=== PATIENT | male | born 1960 | race Caucasian/White ===

== ENCOUNTER 2017-03-07 03:02 | Emergency (ER) | payer MEDICARE, MEDICAID ==
--- NOTE | 2017-03-07 03:26 | EDM.PDOC ---
ED HPI GENERAL MEDICAL PROBLEM - General Chief Complaint: General Stated Complaint: GENERAL Time Seen by Provider: 03/07/17 03:15 Source of Information: Reports: Patient History Limitations: Reports: No Limitations - History of Present Illness INITIAL COMMENTS - FREE TEXT/NARRATIVE: 56 yo male presents with heart burn that began about bedtime that was mostly relieve with Gaviscon. He then developed urinary frequency without dysuria. Since then he had a "dry heave". Some chills also since [place]. Is a non-smoker x 20 yrs. Has not yet had an influenza vaccine. Onset: Today Onset Date: 03/07/17 Onset Time: 00:00 Duration: Hour(s): Location: Reports: Chest (GERD-like sx's) Quality: Reports: Burning Severity: Moderate Improves with: Reports: Medication (Gaviscon) Worsens with: Reports: Other (unknown) Context: Reports: Other (unknown) Associated Symptoms: Reports: Fever/Chills (no definite fever.), Nausea/ Vomiting. Denies: Cough Treatments [employer]: Reports: Other (see below) (Gaviscon) - Related Data Allergies Allergy/AdvReac Type Severity Reaction Status Date / Time bupropion [From Wellbutrin] Allergy Rash Verified 03/07/17 03:10 oxycodone Allergy Rash Verified 03/07/17 03:10 trazodone Allergy Other Verified 03/07/17 03:10 Home Meds: Home Meds Aspirin 81 mg PO DAILY 03/07/17 [History] Cyanocobalamin (Vitamin B-12) [Vitamin B12] 5,000 mcg PO DAILY 03/07/17 [History ] QUEtiapine [SEROquel] 50 mg PO DAILY 03/07/17 [History] atorvaSTATin [Lipitor] 10 mg PO BEDTIME 03/07/17 [History] traMADol HCl [Tramadol HCl] 50 mg PO QID 03/07/17 [History] ED ROS GENERAL - Review of Systems Review Of Systems: See Below Constitutional: Reports: Chills. Denies: Fever HEENT: Reports: No Symptoms Respiratory: Reports: No Symptoms Cardiovascular: Reports: Chest Pain (heart burn) Endocrine: Reports: Polyuria GI/Abdominal: Reports: Nausea. Denies: Abdominal Pain, Anorexia, Black Stool, Bloody Stool, Constipation, Diarrhea, Distension, Hematemesis, Hematochezia, Melena : Reports: Frequency Musculoskeletal: Reports: No Symptoms Skin: Reports: No Symptoms Neurological: Reports: No Symptoms Psychiatric: Reports: No Symptoms ED EXAM, GENERAL - Physical Exam Exam: See Below Exam Limited By: No Limitations General Appearance: Alert, WD/WN, No Apparent Distress Eye Exam: Bilateral Eye: Normal Inspection Ears: Normal External Exam, Normal Canal, Hearing Grossly Normal, Normal TMs Ear Exam: Bilateral Ear: Auricle Normal, Canal Normal, TM normal Nose: Normal Inspection, Normal Mucosa, No Blood Throat/Mouth: Normal Inspection, Normal Lips, Normal Teeth, Normal Oropharynx, Normal Voice, No Airway Compromise Head: Atraumatic, Normocephalic Neck: Normal Inspection, Supple, Non-Tender Respiratory/Chest: No Respiratory Distress, Lungs Clear, Normal Breath Sounds, No Accessory Muscle Use Cardiovascular: Regular Rate, Rhythm, No Edema GI/Abdominal: Normal Bowel Sounds, Soft, Non-Tender, No Distention Back Exam: Normal Inspection. No: CVA Tenderness (R), CVA Tenderness (L) Extremities: Normal Inspection, Normal Range of Motion, Non-Tender, No Pedal Edema Neurological: Alert, Oriented, CN II-XII Intact, Normal Cognition, Normal Gait, No Motor/Sensory Deficits Psychiatric: Normal Affect, Normal Mood Skin Exam: Warm, Dry, Intact, Normal Color, No Rash Lymphatic: No Adenopathy EKG INTERPRETATION EKG Date: 03/07/17 Time: 03:40 Rhythm: NSR Rate (Beats/Min): 65 [place]: Normal P-Wave: Present QRS: Normal ST-T: Normal QT: Normal Comparison: NA - No Prior EKG Course - Vital Signs Text/Narrative:: Post-void bladder scan 30 ml Accu Check-118 - Orders/Labs/Meds Orders: Active Orders 24 hr Category Date Time Status Accu Check [Blood Glucose Check, Bedside] [RC] ONETIME Care 03/07/17 03:22 Active Bladder Scan [RC] ONETIME Care 03/07/17 03:22 Active EKG Documentation Completion [RC] ASDIRECTED Care 03/07/17 03:27 Active EKG 12 Lead [EK] Routine Ther 03/07/17 03:26 Ordered Labs: Laboratory Tests 03/07/17 Range/Units 03:30 Urine Color Yellow (YELLOW) Urine Appearance Clear (CLEAR) Urine pH 8.0 H (5.0-6.5) Ur Specific [place] 1.020 (1.010-1.025) Urine Protein Negative (NEGATIVE) mg/dL Urine Glucose (UA) Normal (NEGATIVE) mg/dL Urine Ketones Negative (NEGATIVE) mg/dL Urine Occult Blood Negative (NEGATIVE) Urine Nitrite Negative (NEGATIVE) Urine Bilirubin Negative (NEGATIVE) Urine Urobilinogen Normal (NEGATIVE) mg/dL Ur Leukocyte Esterase Negative (NEGATIVE) Urine RBC 0-5 (0) Urine WBC 0-5 (0) Ur Squamous Epith Cells Occasional (NS,R,O) Urine Bacteria Few H (NS) Departure - Departure Time of Disposition: 04:12 Disposition: Home, Self-Care 01 Condition: Good Clinical Impression: Viral syndrome Allergic rhinitis Qualifiers: Chronicity: unspecified Allergic rhinitis trigger: unspecified Allergic rhinitis seasonality: unspecified seasonality Qualified Code(s): J30.9 - Allergic rhinitis, unspecified - Discharge Information Referrals: Evelyn Villa, TOUR BUS DRIVER/GUIDE [Primary Care Provider] - Forms: ED Department Discharge - My Orders Last 24 Hours: My Active Orders 03/07/17 03:22 Accu Check [Blood Glucose Check, Bedside] [RC] ONETIME Bladder Scan [RC] ONETIME 03/07/17 03:26 EKG 12 Lead [EK] Routine 03/07/17 03:27 EKG Documentation Completion [RC] ASDIRECTED - Assessment/Plan Last 24 Hours: My Active Orders 03/07/17 03:22 Accu Check [Blood Glucose Check, Bedside] [RC] ONETIME Bladder Scan [RC] ONETIME 03/07/17 03:26 EKG 12 Lead [EK] Routine 03/07/17 03:27 EKG Documentation Completion [RC] ASDIRECTED
[2017-03-07] MEDS ORDERED: Acetaminophen 500 MG Tab PO ONE (04:13)
== END 2017-03-07 04:27 | disposition home or self-care (01) ==
LOC: FB.ED 03:02
DX: J30.9 Allergic rhinitis, unspecified (principal); B34.9 Viral infection, unspecified; Z88.8 Allergy status to other drugs, medicaments and biological substances; Z79.82 Long term (current) use of aspirin; Z79.899 Other long term (current) drug therapy
CPT/HCPCS: 51798; 81001; 82962; 93005; 99284; A9270; 93010

== ENCOUNTER 2018-07-01 21:14 | Emergency (ER) | payer MEDICARE, MEDICAID ==
--- NOTE | 2018-07-01 22:02 | EDM.PDOC ---
ED HPI GENERAL MEDICAL PROBLEM - General Chief Complaint: Abdominal Pain Stated Complaint: L ABD PAIN Time Seen by Provider: 07/01/18 21:30 Source of Information: Reports: Patient, Family History Limitations: Reports: No Limitations - History of Present Illness INITIAL COMMENTS - FREE TEXT/NARRATIVE: Rowdy comes into [facility] ED with a 1.5 hr hx of LLQ pain. Pain is crampy and intermittently sharp, and nonradiating. There is some nausea, but no vomiting. There is no fever, chills, sweats, diarrhea or constipation. He has taken no meds. He did eat dinner without sequelae. - Related Data Allergies Allergy/AdvReac Type Severity Reaction Status Date / Time bupropion [From Wellbutrin] Allergy Rash Verified 07/01/18 23:10 oxycodone Allergy Rash Verified 07/01/18 23:10 trazodone Allergy Other Verified 07/01/18 23:10 Home Meds: Home Meds Aspirin 81 mg PO DAILY 03/07/17 [History] Cyanocobalamin (Vitamin B-12) [Vitamin B12] 5,000 mcg PO DAILY 03/07/17 [History ] QUEtiapine [SEROquel] 50 mg PO DAILY 03/07/17 [History] atorvaSTATin [Lipitor] 10 mg PO BEDTIME 03/07/17 [History] traMADol HCl [Tramadol HCl] 50 mg PO QID 03/07/17 [History] Ciprofloxacin [Ciprofloxacin HCl] 500 mg PO BID #14 tab 07/01/18 [Rx] Lisinopril 5 mg PO DAILY 07/01/18 [History] Montelukast [Singulair] 10 mg PO DAILY 07/01/18 [History] metroNIDAZOLE [Metronidazole] 500 mg PO Q8HR #20 tablet 07/01/18 [Rx] tiZANidine [Zanaflex] 4 mg PO DAILY 07/01/18 [History] Past Medical History - Past Health History Medical/Surgical History: Denies Medical/Surgical History Gastrointestinal History: Reports: Diverticulosis, Other (See Below) (colonic polyps) Social & Family History - Family History Family Medical History: Noncontributory - Caffeine Use Caffeine Use: Reports: None ED ROS GENERAL - Review of Systems Review Of Systems: See Below Constitutional: Reports: No Symptoms HEENT: Reports: No Symptoms Respiratory: Reports: No Symptoms Cardiovascular: Reports: No Symptoms Endocrine: Reports: No Symptoms GI/Abdominal: Reports: Abdominal Pain, Decreased Appetite, Nausea, Vomiting : Reports: No Symptoms Musculoskeletal: Reports: No Symptoms Skin: Reports: No Symptoms Neurological: Reports: No Symptoms Psychiatric: Reports: No Symptoms Hematologic/Lymphatic: Reports: No Symptoms Immunologic: Reports: No Symptoms ED EXAM, GI/ABD - Physical Exam Exam: See Below Exam Limited By: No Limitations General Appearance: Alert, WD/WN, No Apparent Distress, Anxious, Obese Eyes: Bilateral: Normal Appearance, EOMI Ears: Normal External Exam Nose: Normal Inspection Throat/Mouth: Normal Inspection Head: Normocephalic Neck: Normal Inspection, Supple, Non-Tender Respiratory/Chest: Lungs Clear, Normal Breath Sounds Cardiovascular: Regular Rate, Rhythm, No Murmur GI/Abdominal Exam: Normal Bowel Sounds, Soft, No Organomegaly, No Distention, No Mass, Tender (LLQ with guarding) (Male) Exam: No Hernia, Normal Inspection Back Exam: Normal Inspection Extremities: Normal Inspection Neurological: Alert, Oriented, CN II-XII Intact, Normal Cognition, No Motor/ Sensory Deficits Psychiatric: Normal Affect, Normal Mood Skin Exam: Warm, Dry, Intact, Normal Color Lymphatic: No Adenopathy Course - Vital Signs Text/Narrative:: Rowdy had some improvement in pain during ED visit while awaiting results of Abd-Pelvic CT w IV contrast: mild wall thickening w multiple diverticulosis in the sigmoid colon, acute inflammation no distinctly seen. I empirically administered Cipro 500 mg tab and Metronidazole 500 mg tab before discharge. - Orders/Labs/Meds Orders: Active Orders 24 hr Category Date Time Status Abdomen Pelvis w Cont [CT] Stat Exams 07/01/18 21:55 Taken Diatrizoate Lisette/Diatrizoate Na [Gastrografin 37%] Med 07/01/18 22:30 Active 30 ml PO . DIRECTED Medication Orders Diatrizoate Meglum/Diatrizoate Sod (Gastrografin 37%) 30 ml PO . DIRECTED ANGELICA Last Admin: 07/01/18 22:46 Dose: 30 ml Labs: Laboratory Tests 07/01/18 07/01/18 07/01/18 Range/Units 22:10 22:18 22:18 WBC 8.6 (4.5-12.0) X10-3/uL RBC 5.11 (4.30-5.75) x10(6)uL Hgb 14.8 (13.5-17.8) g/dL Hct 44.0 (30.0-51.3) % MCV 86.1 (80-96) fL MCH 29.0 (27.7-33.6) pg MCHC 33.7 (32.2-35.4) g/dL RDW 13.8 (11.5-15.5) % Plt Count 362 (125-369) X10(3)uL MPV 8.1 (7.4-10.4) fL Neut % (Auto) 73.3 (46-82) % Lymph % (Auto) 16.6 (13-37) % [place] % (Auto) 5.6 (4-12) % Eos % (Auto) 4 (1.0-5.0) % Baso % (Auto) 1 (0-2) % Neut # (Auto) 6.3 (1.6-8.3) # Lymph # (Auto) 1.4 (0.6-5.0) # [place]ps # (Auto) 0.5 (0.0-1.3) # Eos # (Auto) 0.3 (0.0-0.8) # Baso # (Auto) 0.1 (0.0-0.2) # ESR 4 (0-15) mm/hr Sodium 144 (135-145) mmol/L Potassium 3.8 (3.5-5.3) mmol/L Chloride 105 (100-110) mmol/L Carbon Dioxide 31 (21-32) mmol/L BUN 15 (7-18) mg/dL Creatinine 1.2 (0.70-1.30) mg/dL Est Cr Clr Drug Dosing TNP Estimated GFR (MDRD) > 60 (>60) BUN/Creatinine Ratio 12.5 (9-20) Glucose 103 (80-116) mg/dL Calcium 9.2 (8.6-10.2) mg/dL C-Reactive Protein (0.5-0.9) mg/dL Urine Color Yellow (YELLOW) Urine Appearance Clear (CLEAR) Urine pH 6.0 (5.0-6.5) Ur Specific [place] 1.010 (1.010-1.025) Urine Protein Negative (NEGATIVE) mg/dL Urine Glucose (UA) Normal (NORMAL) mg/dL Urine Ketones Negative (NEGATIVE) mg/dL Urine Occult Blood Negative (NEGATIVE) Urine Nitrite Negative (NEGATIVE) Urine Bilirubin Negative (NEGATIVE) Urine Urobilinogen Normal (NEGATIVE) mg/dL Ur Leukocyte Esterase Negative (NEGATIVE) Urine RBC 0-5 (0-5) Urine WBC 0-5 (0-5) Ur Squamous Epith Cells Occasional (NS,R,O) Urine Bacteria Rare H (NS) 07/01/18 Range/Units 22:18 WBC (4.5-12.0) X10-3/uL RBC (4.30-5.75) x10(6)uL Hgb (13.5-17.8) g/dL Hct (30.0-51.3) % MCV (80-96) fL MCH (27.7-33.6) pg MCHC (32.2-35.4) g/dL RDW (11.5-15.5) % Plt Count (125-369) X10(3)uL MPV (7.4-10.4) fL Neut % (Auto) (46-82) % Lymph % (Auto) (13-37) % [place] % (Auto) (4-12) % Eos % (Auto) (1.0-5.0) % Baso % (Auto) (0-2) % Neut # (Auto) (1.6-8.3) # Lymph # (Auto) (0.6-5.0) # [place] # (Auto) (0.0-1.3) # Eos # (Auto) (0.0-0.8) # Baso # (Auto) (0.0-0.2) # ESR (0-15) mm/hr Sodium (135-145) mmol/L Potassium (3.5-5.3) mmol/L Chloride (100-110) mmol/L Carbon Dioxide (21-32) mmol/L BUN (7-18) mg/dL Creatinine (0.70-1.30) mg/dL Est Cr Clr Drug Dosing Estimated GFR (MDRD) (>60) BUN/Creatinine Ratio (9-20) Glucose (80-116) mg/dL Calcium (8.6-10.2) mg/dL C-Reactive Protein < 0.2 L (0.5-0.9) mg/dL Urine Color (YELLOW) Urine Appearance (CLEAR) Urine pH (5.0-6.5) Ur Specific [place] (1.010-1.025) Urine Protein (NEGATIVE) mg/dL Urine Glucose (UA) (NORMAL) mg/dL Urine Ketones (NEGATIVE) mg/dL Urine Occult Blood (NEGATIVE) Urine Nitrite (NEGATIVE) Urine Bilirubin (NEGATIVE) Urine Urobilinogen (NEGATIVE) mg/dL Ur Leukocyte Esterase (NEGATIVE) Urine RBC (0-5) Urine WBC (0-5) Ur Squamous Epith Cells (NS,R,O) Urine Bacteria (NS) Meds: Medications Generic Name Dose Route Start Last Admin Trade Name Freq PRN Reason Stop Dose Admin Diatrizoate Meglum/Diatrizoate Sod 30 ml 07/01/18 22:30 07/01/18 22:46 Gastrografin 37% PO 30 ml . DIRECTED ANGELICA Administration Discontinued Medications Generic Name Dose Route Start Last Admin Trade Name Freq PRN Reason Stop Dose Admin Ciprofloxacin 500 mg 07/01/18 23:12 07/01/18 23:20 Ciprofloxacin Hcl PO 07/01/18 23:13 500 mg ONETIME ONE Administration Iopamidol 100 ml 07/01/18 22:26 07/01/18 22:46 Isovue-370 (76%) IV 07/01/18 22:27 100 ml . DIRECTED ONE Administration Metronidazole 500 mg 07/01/18 23:12 07/01/18 23:20 Flagyl PO 07/01/18 23:13 500 mg ONETIME ONE Administration Departure - Departure Time of Disposition: 23:23 Disposition: Home, Self-Care 01 Condition: Fair Clinical Impression: Sigmoid diverticulitis - Discharge Information *PRESCRIPTION DRUG MONITORING PROGRAM REVIEWED*: Not Applicable *COPY OF PRESCRIPTION DRUG MONITORING REPORT IN PATIENT REGINALDO: Not Applicable Prescriptions: metroNIDAZOLE [Metronidazole] 500 mg PO Q8HR #20 tablet Ciprofloxacin [Ciprofloxacin HCl] 500 mg PO BID #14 tab Referrals: Evelyn Villa DOCUMENT REVIEW ATTORNEY [Primary Care Provider] - Forms: ED Department Discharge - Problem List & Annotations (1) Sigmoid diverticulitis SNOMED Code(s): 104023859 Code(s): K57.32 - DVTRCLI OF LG INT W/O PERFORATION OR ABSCESS W/O BLEEDING Status: Acute Current Visit: Yes Annotation/Comment:: I empiracally dispensed Cipro 500 mg bid for a week and Metronidazole 500 mg tid for a week, advised avoidance of seeds and nuts, and follow up with PCP. - Problem List Review Problem List Initiated/Reviewed/Updated: Yes - My Orders Last 24 Hours: My Active Orders 07/01/18 21:55 Abdomen Pelvis w Cont [CT] Stat 07/01/18 22:30 Diatrizoate Lisette/Diatrizoate Na [Gastrografin 37%] 30 ml PO . DIRECTED - Assessment/Plan Last 24 Hours: My Active Orders 07/01/18 21:55 Abdomen Pelvis w Cont [CT] Stat 07/01/18 22:30 Diatrizoate Lisette/Diatrizoate Na [Gastrografin 37%] 30 ml PO . DIRECTED Plan: Follow up with PCP later this month.
[2018-07-01] MEDS ORDERED: Iopamidol 755 Mg/ML 100 ML Bottle IV ONE (22:26)
[2018-07-01] MEDS ORDERED: Diatrizoate Meglumine/Diatrizoate Sodium 37% 30 ML Bottle PO SCH (22:30)
[2018-07-01] MEDS ORDERED: Ciprofloxacin 500 MG Tab PO ONE (23:12)
[2018-07-01] MEDS ORDERED: metroNIDAZOLE 500 MG Tab PO ONE (23:12)
== END 2018-07-01 23:30 | disposition home or self-care (01) ==
LOC: FB.ED 21:14
DX: K57.32 Diverticulitis of large intestine without perforation or abscess without bleeding (principal); Z88.5 Allergy status to narcotic agent; Z79.899 Other long term (current) drug therapy; Z79.82 Long term (current) use of aspirin
CPT/HCPCS: 36415; 74177; 80048; 81001; 85025; 85651; 86140; 99284; A9270; Q9963; Q9967

== ENCOUNTER 2018-08-18 04:16 | Emergency (ER) | payer MEDICAID, MEDICARE ==
--- NOTE | 2018-08-18 04:45 | EDM.PDOC ---
ED HPI GENERAL MEDICAL PROBLEM - General Chief Complaint: ENT Problem Stated Complaint: TROUBLE SWALLOWING SOB Time Seen by Provider: 08/18/18 04:16 Source of Information: Reports: Patient History Limitations: Reports: No Limitations - History of Present Illness INITIAL COMMENTS - FREE TEXT/NARRATIVE: 58 y.o.w.m came to the ed after he woke up with sudden pain at his throat. He had the feeling some is tuck in his throat, hurts to swallow. Pt ate a hamburger last night. He had no symptoms when he went to bed. No H/O of epiglottis, no Trauma. Pt is able to drink water well. No F/C/N/V/D or any other acute medical issues. BP 186/100 RR 18 Pulse ox 98% on RA, Temp 36.4 Pulse 93 Onset Date: 08/18/18 Onset Time: 03:20 Duration: Minutes:, Constant Location: Reports: Neck Quality: Reports: Ache, Burning, Dull Severity: Mild Improves with: Reports: Rest Worsens with: Reports: Movement Context: Reports: Other Associated Symptoms: Reports: No Other Symptoms Throat Pain Score (Numeric/FACES): 8 - Related Data Allergies Allergy/AdvReac Type Severity Reaction Status Date / Time bupropion [From Wellbutrin] Allergy Rash Verified 08/18/18 04:22 oxycodone Allergy Rash Verified 08/18/18 04:22 trazodone Allergy Other Verified 08/18/18 04:22 Home Meds: Home Meds Aspirin 81 mg PO DAILY 03/07/17 [History] Cyanocobalamin (Vitamin B-12) [Vitamin B12] 5,000 mcg PO DAILY 03/07/17 [History ] QUEtiapine [SEROquel] 50 mg PO BEDTIME 03/07/17 [History] traMADol HCl [Tramadol HCl] 50 mg PO QID 03/07/17 [History] Lisinopril 10 mg PO DAILY 07/01/18 [History] Montelukast [Singulair] 10 mg PO BEDTIME 07/01/18 [History] tiZANidine [Zanaflex] 4 mg PO BID 07/01/18 [History] Amoxicillin/Potassium Clav [Augmentin 875-125 Tablet] 1 each PO BID #20 tablet 08/18/18 [Rx] predniSONE 20 mg PO WITHBREAKFAST #3 tab 08/18/18 [Rx] Past Medical History - Past Health History Medical/Surgical History: Denies Medical/Surgical History Gastrointestinal History: Reports: Diverticulosis, Other (See Below) (colonic polyps) Social & Family History - Family History Family Medical History: Noncontributory - Caffeine Use Caffeine Use: Reports: None ED ROS ENT - Review of Systems Review Of Systems: See Below Constitutional: Reports: No Symptoms HEENT: Reports: Throat Pain, Throat Swelling Respiratory: Reports: No Symptoms Cardiovascular: Reports: No Symptoms Endocrine: Reports: No Symptoms GI/Abdominal: Reports: No Symptoms : Reports: No Symptoms Musculoskeletal: Reports: No Symptoms Skin: Reports: No Symptoms Neurological: Reports: No Symptoms Psychiatric: Reports: No Symptoms Hematologic/Lymphatic: Reports: No Symptoms Immunologic: Reports: No Symptoms ED EXAM, ENT - Physical Exam Exam: See Below Exam Limited By: No Limitations General Appearance: Alert, WD/WN, Mild Distress Eye Exam: Bilateral Eye: Normal Inspection Ears: Normal External Exam, Normal Canal Nose: Normal Inspection, Normal Mucousa, No Blood Mouth/Throat: Uvular Edema Head: Atraumatic, Normocephalic Neck: Normal Inspection, Supple, Non-Tender, Full Range of Motion Respiratory/Chest: No Respiratory Distress, Lungs Clear, Normal Breath Sounds, No Accessory Muscle Use, Chest Non-Tender Cardiovascular: Normal Peripheral Pulses, Regular Rate, Rhythm, No Edema GI/Abdominal: Normal Bowel Sounds, Soft, Non-Tender, No Organomegaly, Pelvis Stable (Male) Exam: Deferred Rectal (Males) Exam: Deferred Back: Normal Inspection, Full Range of Motion Extremities: Normal Inspection, Normal Range of Motion, Non-Tender Neurological: Alert, Oriented, CN II-XII Intact, Normal Cognition, Normal Gait Psychiatric: Normal Affect, Normal Mood Skin: Warm, Dry, Intact, Normal Color, No Rash Lymphatic: No Adenopathy Course - Vital Signs Text/Narrative:: 58 y.o.w.m came to the ed after he woke up with sudden pain at his throat. He had the feeling some is tuck in his throat, hurts to swallow. Pt ate a hamburger last night. He had no symptoms when he went to bed. No H/O of epiglottis, no Trauma. Pt is able to drink water well. No F/C/N/V/D or any other acute medical issues. BP 186/100 RR 18 Pulse ox 98% on RA, Temp 36.4 Pulse 93 PE: WNWD W M with dysphagia Imaging: CT soft tissue neck: Prominent Uvula, ENT evaluation recommended Labs: RST: Neg Cx pending Impression: Uvulitis Tx: Augmentin, Prednisone Reexam: Pt's symptoms improved while the was her in the ED Plan: D/C with instructions Last Recorded V/S: Last Vital Signs Temp 36.4 C 08/18/18 04:16 Pulse 71 08/18/18 06:39 Resp 18 08/18/18 06:39 BP 156/101 H 08/18/18 06:39 Pulse Ox 98 08/18/18 06:39 - Orders/Labs/Meds Orders: Active Orders 24 hr Category Date Time Status Neck Soft Tissue [CR] Stat Exams 08/18/18 04:33 Stop Req Soft Tissue Neck w Cont [CT] Stat Exams 08/18/18 05:13 Taken CULTURE STREP A CONFIRMATION [] Stat Lab 08/18/18 04:40 Results STREP SCRN A RAPID W CULT CONF [] Stat Lab 08/18/18 04:40 Results Meds: Medications Discontinued Medications Generic Name Dose Route Start Last Admin Trade Name Freq PRN Reason Stop Dose Admin Amoxicillin/Clavulanate Potassium 1 tab 08/18/18 06:16 08/18/18 06:25 Augmentin 875 Mg/125 Mg PO 08/18/18 06:17 1 tab ONETIME ONE Administration Iopamidol 75 ml 08/18/18 04:59 08/18/18 05:09 Isovue-370 (76%) IV 08/18/18 05:00 75 ml ONETIME ONE Administration Prednisone 20 mg 08/18/18 06:13 08/18/18 06:25 Prednisone PO 08/18/18 06:14 20 mg ONETIME ONE Administration Departure - Departure Time of Disposition: 06:14 Disposition: Home, Self-Care 01 Condition: Good Clinical Impression: Uvulitis - Discharge Information Prescriptions: Amoxicillin/Potassium Clav [Augmentin 875-125 Tablet] 1 each PO BID #20 tablet predniSONE 20 mg PO WITHBREAKFAST #3 tab Instructions: Amoxicillin; Clavulanic Acid tablets, Prednisone tablets, Uvulitis Referrals: Evelyn Villa, FIRE MARSHAL [Primary Care Provider] - Forms: ED Department Discharge Additional Instructions: Please take the medications as recommended, please follow up with ENT (ear, nose & throat) doctor for direct visualization of your uvula, please come back if your symptoms get worse acutely - My Orders Last 24 Hours: My Active Orders 08/18/18 04:33 Neck Soft Tissue [CR] Stat 08/18/18 04:40 CULTURE STREP A CONFIRMATION [RM] Stat STREP SCRN A RAPID W CULT CONF [RM] Stat 08/18/18 05:13 Soft Tissue Neck w Cont [CT] Stat - Assessment/Plan Last 24 Hours: My Active Orders 08/18/18 04:33 Neck Soft Tissue [CR] Stat 08/18/18 04:40 CULTURE STREP A CONFIRMATION [RM] Stat STREP SCRN A RAPID W CULT CONF [RM] Stat 08/18/18 05:13 Soft Tissue Neck w Cont [CT] Stat
[2018-08-18] MEDS ORDERED: Iopamidol 755 Mg/ML 75 ML Bottle IV ONE (04:59)
[2018-08-18] MEDS ORDERED: predniSONE 20 MG Tab PO ONE (06:13)
[2018-08-18] MEDS ORDERED: Amoxicillin/Clavulanate K 875-125 MG Tab PO ONE (06:16)
== END 2018-08-18 06:28 | disposition home or self-care (01) ==
LOC: FB.ED 04:16
DX: K12.2 Cellulitis and abscess of mouth (principal); Z79.82 Long term (current) use of aspirin; Z79.899 Other long term (current) drug therapy; Z88.8 Allergy status to other drugs, medicaments and biological substances; Z88.6 Allergy status to analgesic agent
CPT/HCPCS: 70360; 70491; 87081; 87880-QW; 99283; 99284-25; A9270-GY; Q9967

== ENCOUNTER 2018-10-12 05:49 | Emergency (ER) | payer MEDICAID, MEDICARE ==
[2018-10-12] MEDS ORDERED: Famotidine/Normal Saline 20 MG in Premix Bag 1 BAG IV ONE (06:35)
[2018-10-12] MEDS ORDERED: Dexamethasone 4 MG/ML SDV IVPUSH ONE (06:35)
[2018-10-12] MEDS ORDERED: Sodium Chloride 0.9% 10 ML Syringe FLUSH PRN (06:35)
[2018-10-12] MEDS ORDERED: diphenhydrAMINE 50 MG/ML SDV IVPUSH ONE (06:37)
[2018-10-12] MEDS ORDERED: Sodium Chloride 0.9% 1,000 ML IV SCH (06:45)
--- NOTE | 2018-10-12 06:50 | EDM.PDOC ---
ED HPI GENERAL MEDICAL PROBLEM - General Chief Complaint: Respiratory Problem Stated Complaint: THROAT PAIN Time Seen by Provider: 10/12/18 06:10 Source of Information: Reports: Patient History Limitations: Reports: No Limitations - History of Present Illness INITIAL COMMENTS - FREE TEXT/NARRATIVE: 58-year-old male who awoke at roughly 5:30 AM today with a feeling of something stuck in his throat. He had a similar feeling to this about 2 months ago and came to the emergency department and was found to have uvula swelling. He was treated with Benadryl and prednisone and was also placed on Augmentin for treatment of a uvulitis. He was later followed up by his primary provider and his lisinopril was stopped. At that time the patient was started on losartan for his blood pressure. The swelling in his throat was in his uvula and it resolved over a shorter time following the initial incident and he had had no further swelling since that time. He had problems with swallowing and congestion in his nose and recently was placed on Augmentin again for sinusitis (he has been on been on this Augmentin 15 days). Although it does feel like something is stuck in the throat, he is able to swallow liquids okay. He is really not having any trouble breathing at present. He mainly has a discomfort in his throat with swallowing that he would rated as a 5/10. No fevers. No chills. No chest pain. No arm pain. No nausea or vomiting. The patient did take Benadryl 100 mg by mouth and prednisone 40 mg by mouth (he was given the prednisone by his doctor to take if this happened again) this morning at around the time he awoke and now he feels somewhat improved from his initial awakening. There are no other associated signs or symptoms. There are no other modifying factors. Onset: Today (5:30 AM) Duration: Constant (But some mild improvement he feels after the 100 mg of Benadryl and 40 mg of prednisone that he took orally this morning.) Location: Reports: Neck (Throat) Quality: Reports: Other (Fullness, something swollen) Severity: Moderate Improves with: Reports: Medication (He feels as above) Worsens with: Reports: None Context: Reports: Other (Awoke with his symptoms) Associated Symptoms: Reports: No Other Symptoms Treatments [employer]: Reports: Other (see below) Other Treatments [employer]: 2 Prednisone, 4 Benadryl - Related Data Allergies Allergy/AdvReac Type Severity Reaction Status Date / Time bupropion [From Wellbutrin] Allergy Rash Verified 10/12/18 05:58 lisinopril Allergy Swelling Verified 10/12/18 08:22 losartan Allergy Swelling Verified 10/12/18 08:22 oxycodone Allergy Rash Verified 10/12/18 05:58 trazodone Allergy Other Verified 10/12/18 05:58 Home Meds: Home Meds Aspirin 81 mg PO DAILY 03/07/17 [History] Cyanocobalamin (Vitamin B-12) [Vitamin B12] 5,000 mcg PO DAILY 03/07/17 [History ] QUEtiapine [SEROquel] 50 mg PO BEDTIME 03/07/17 [History] traMADol HCl [Tramadol HCl] 50 mg PO QID 03/07/17 [History] Montelukast [Singulair] 10 mg PO BEDTIME 07/01/18 [History] tiZANidine [Zanaflex] 4 mg PO BID 07/01/18 [History] Amoxicillin/Potassium Clav [Augmentin 875-125 Tablet] 1 each PO BID #20 tablet 08/18/18 [Rx] predniSONE 20 mg PO WITHBREAKFAST #3 tab 08/18/18 [Rx] Cetirizine HCl [Zyrtec] 10 mg PO DAILY 10/12/18 [History] Losartan Potassium 25 mg PO DAILY 10/12/18 [History] Meloxicam 15 mg PO DAILY 10/12/18 [History] Ranitidine HCl 150 mg PO BID #8 tablet 10/12/18 [Rx] amLODIPine Besylate [Norvasc] 10 mg PO DAILY #30 tablet 10/12/18 [Rx] predniSONE [Prednisone] 50 mg PO DAILY #3 tablet 10/12/18 [Rx] Past Medical History 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 Psychiatric History: Reports: Bipolar, Psych Hospitalization(s), Suicide Attempt Endocrine/Metabolic History: Reports: Hyperthyroidism, Obesity/BMI 30+ - Infectious Disease History Infectious Disease History: Reports: Chicken Pox, Mumps - Past Surgical History GI Surgical History: Reports: Colonoscopy, Hernia, Abdominal, Hernia, Inguinal Neurological Surgical History: Reports: Spinal Fusion, Other (See Below) Other Neurological Surgeries/Procedures: neck fusion x 2 Musculoskeletal Surgical History: Reports: Shoulder Surgery Other Musculoskeletal Surgeries/Procedures:: R rotator cuff surgery 2 Social & Family History - Tobacco Use Smoking Status *Q: Former Smoker Used Tobacco, but Quit: Yes Month/Year Tobacco Last Used: 25 years ago - Caffeine Use Caffeine Use: Reports: Coffee, Soda - Alcohol Use Alcohol Use History: Yes Alcohol Use Frequency: Socially - Recreational Drug Use Recreational Drug Use: No - Living Situation & Occupation Occupation: Disabled ED ROS GENERAL - Review of Systems Review Of Systems: See Below Constitutional: Reports: No Symptoms HEENT: Reports: Other (Uvula edema) Respiratory: Reports: No Symptoms Cardiovascular: Reports: No Symptoms Endocrine: Reports: No Symptoms GI/Abdominal: Reports: No Symptoms : Reports: No Symptoms Musculoskeletal: Reports: No Symptoms Skin: Reports: No Symptoms Neurological: Reports: No Symptoms Hematologic/Lymphatic: Reports: No Symptoms Immunologic: Reports: No Symptoms ED EXAM, GENERAL - Physical Exam Exam: See Below Exam Limited By: No Limitations General Appearance: Alert, WD/WN, Mild Distress Eye Exam: Bilateral Eye: EOMI, Normal Inspection, PERRL Ears: Normal External Exam Ear Exam: Bilateral Ear: Auricle Normal Nose: Normal Inspection, Normal Mucosa, No Blood Throat/Mouth: Normal Voice, No Airway Compromise, Inflammation (Uvula edema) Head: Atraumatic, Normocephalic Neck: Normal Inspection, Supple, Non-Tender, Full Range of Motion, Other (No stridor) Respiratory/Chest: No Respiratory Distress, Lungs Clear, Normal Breath Sounds, No Accessory Muscle Use, Chest Non-Tender Cardiovascular: Normal Peripheral Pulses, Regular Rate, Rhythm, No JVD Peripheral Pulses: 2+: Radial (L), Radial (R) GI/Abdominal: Normal Bowel Sounds, Soft, Non-Tender, No Mass Back Exam: Normal Inspection Extremities: Normal Inspection, Normal Range of Motion, Non-Tender, No Pedal Edema, Normal Capillary Refill Neurological: Alert, Oriented, CN II-XII Intact, Normal Cognition, No Motor/ Sensory Deficits Skin Exam: Warm, Dry, Intact, Normal Color, No Rash EKG INTERPRETATION EKG Date: 10/12/18 Time: 05:52 Rhythm: NSR Rate (Beats/Min): 79 Thompson: Normal P-Wave: Present QRS: Normal ST-T: Other (Some anterolateral ST-T changes which have been present on previous EKG on 03/07/2017.) QT: Prolonged Comparison: No Change (From EKG performed on 03/07/2017.) Course - Vital Signs Last Recorded V/S: Last Vital Signs Temp 36.5 C 10/12/18 05:50 Pulse 78 10/12/18 05:50 Resp 18 10/12/18 05:50 BP 171/94 H 10/12/18 05:50 Pulse Ox 98 10/12/18 06:00 - Orders/Labs/Meds Orders: Active Orders 24 hr Category Date Time Status Sodium Chloride 0.9% [Normal Saline] 1,000 ml Med 10/12/18 06:45 Active IV ASDIRECTED Sodium Chloride 0.9% [Saline Flush] Med 10/12/18 06:35 Active 10 ml FLUSH ASDIRECTED PRN Peripheral IV Insertion Adult [OM.PC] Routine Oth 10/12/18 06:35 Ordered Medication Orders Sodium Chloride (Normal Saline) 1,000 mls @ 100 mls/hr IV ASDIRECTED ANGELICA Last Admin: 10/12/18 06:50 Dose: 100 mls/hr Sodium Chloride (Saline Flush) 10 ml FLUSH ASDIRECTED PRN PRN Reason: Keep Vein Open Last Admin: 10/12/18 06:40 Dose: 10 ml Meds: Medications Generic Name Dose Route Start Last Admin Trade Name Freq PRN Reason Stop Dose Admin Sodium Chloride 1,000 mls @ 100 mls/hr 10/12/18 06:45 10/12/18 06:50 Normal Saline IV 100 mls/hr ASDIRECTED ANGELICA Administration Sodium Chloride 10 ml 10/12/18 06:35 10/12/18 06:40 Saline Flush FLUSH 10 ml ASDIRECTED PRN Administration Keep Vein Open Discontinued Medications Generic Name Dose Route Start Last Admin Trade Name Freq PRN Reason Stop Dose Admin Amlodipine Besylate 10 mg 10/12/18 08:18 Norvasc PO 10/12/18 08:19 ONETIME ONE Dexamethasone 10 mg 10/12/18 06:35 10/12/18 06:53 Dexamethasone IVPUSH 10/12/18 06:36 10 mg ONETIME ONE Administration Diphenhydramine HCl 25 mg 10/12/18 06:37 10/12/18 06:52 Benadryl IVPUSH 10/12/18 06:38 25 mg ONETIME ONE Administration Famotidine 20 mg/ Premix 50 mls @ 200 mls/hr 10/12/18 06:35 10/12/18 06:51 IV 10/12/18 06:36 200 mls/hr ONETIME ONE Administration - Re-Assessments/Exams Free Text/Narrative Re-Assessment/Exam: 10/12/18 08:25: No respiratory distress. His blood pressure is still elevated but he has not taken his losartan today. He feels that the swelling is somewhat improved. He is swallowing better. This certainly could be ARB related angioedema and I will definitely have him stop his losartan today. I did call and discuss his case with Evelyn Escobar NP (the patient's primary provider at [facility]) and she has recommended starting the patient on Norvasc 10 mg daily (I will give him his first dose today) and she will follow him up in clinic on 10/15/2018, at 1:30 PM. The patient appears stable for discharge. I we will continue the patient on prednisone for the next 3 days and Benadryl and ranitidine for the next 2 days. Departure - Departure Time of Disposition: 08:45 Disposition: Home, Self-Care 01 Condition: Good (Stable) Clinical Impression: Uvulitis Angioedema Qualifiers: Encounter type: initial encounter Qualified Code(s): T78.3XXA - Angioneurotic edema, initial encounter Adverse reaction to losartan Qualifiers: Encounter type: initial encounter Qualified Code(s): T46.5X5A - Adverse effect of other antihypertensive drugs, initial encounter Hypertension Qualifiers: Hypertension type: essential hypertension Qualified Code(s): I10 - Essential ( primary) hypertension - Discharge Information Prescriptions: amLODIPine Besylate [Norvasc] 10 mg PO DAILY #30 tablet predniSONE [Prednisone] 50 mg PO DAILY #3 tablet Ranitidine HCl 150 mg PO BID #8 tablet Instructions: Angioedema, [id number] Referrals: Evelyn Villa NP [Primary Care Provider] - Forms: ED Department Discharge Additional Instructions: The swelling in your uvula may be related to the blood pressure medicine you're taking (losartan). Therefore you should stop the losartan and do not take it again. I am placing you on a new blood pressure medication (Norvasc 10 mg). I discussed this with your primary provider, Evelyn Escobar. You should rest. You should drink plenty of fluids. You should also take Benadryl 50 mg 4 times a day for the next 2 days and then as needed for the swelling/allergic reaction. Other medication as prescribed (prednisone 50 mg, ranitidine 150 mg). You are scheduled to follow-up with Evelyn Escobar at [facility] at 1:30 PM on 2018 (this Thursday). Back to the emergency department for worse swelling, inability to swallow, trouble breathing or any other concerning sign or symptom. - My Orders Last 24 Hours: My Active Orders 10/12/18 06:35 Sodium Chloride 0.9% [Saline Flush] 10 ml FLUSH ASDIRECTED PRN Peripheral IV Insertion Adult [OM.PC] Routine 10/12/18 06:45 Sodium Chloride 0.9% [Normal Saline] 1,000 ml IV ASDIRECTED - Assessment/Plan Last 24 Hours: My Active Orders 10/12/18 06:35 Sodium Chloride 0.9% [Saline Flush] 10 ml FLUSH ASDIRECTED PRN Peripheral IV Insertion Adult [OM.PC] Routine 10/12/18 06:45 Sodium Chloride 0.9% [Normal Saline] 1,000 ml IV ASDIRECTED
[2018-10-12] MEDS ORDERED: amLODIPine 10 MG Tab PO ONE (08:18)
== END 2018-10-12 09:00 | disposition home or self-care (01) ==
LOC: FB.ED 05:49
DX: T78.3XXA Angioneurotic edema, initial encounter (principal); K12.2 Cellulitis and abscess of mouth; T46.5X5A Adverse effect of other antihypertensive drugs, initial encounter; I10 Essential (primary) hypertension; Z87.891 Personal history of nicotine dependence; E78.00 Pure hypercholesterolemia, unspecified; Z79.82 Long term (current) use of aspirin; Z79.899 Other long term (current) drug therapy; Z88.6 Allergy status to analgesic agent; Z88.8 Allergy status to other drugs, medicaments and biological substances
CPT/HCPCS: 96361; 96365; 96375; 99284; A9270; J1100; J1200; J7030

== ENCOUNTER 2018-11-10 04:16 | Emergency (ER) | payer MEDICARE ==
--- NOTE | 2018-11-10 04:38 | EDM.PDOC ---
ED HPI GENERAL MEDICAL PROBLEM - General Stated Complaint: SOB Time Seen by Provider: 11/10/18 04:16 Source of Information: Reports: Patient History Limitations: Reports: No Limitations - History of Present Illness INITIAL COMMENTS - FREE TEXT/NARRATIVE: 58 y.o.w.m with a H/O uvulitis, came to the because he feels his uvula is enlarged. Pt is currently on meds including Prednisone, which he took LEAD FORMER. Pt is scheduled for surgery on November 25. No SOB, No difficulty swallowing. eats drinks. no no CP> No F/C no other acute med issues. BP 177/89 RR 18 Pulse ox 99 % on RA Temp 35.7 Pulse 88 Onset Date: 11/09/18 Onset Time: 21:00 Duration: Hour(s):, Day(s):, Intermittent Location: Reports: Face Quality: Reports: Dull Severity: Mild Improves with: Reports: Medication Worsens with: Reports: None Associated Symptoms: Reports: No Other Symptoms - Related Data Allergies Allergy/AdvReac Type Severity Reaction Status Date / Time bupropion [From Wellbutrin] Allergy Rash Verified 11/10/18 05:06 lisinopril Allergy Swelling Verified 11/10/18 05:06 losartan Allergy Swelling Verified 11/10/18 05:06 oxycodone Allergy Rash Verified 11/10/18 05:06 trazodone Allergy Other Verified 11/10/18 05:06 Home Meds: Home Meds Aspirin 81 mg PO DAILY 03/07/17 [History] Cyanocobalamin (Vitamin B-12) [Vitamin B12] 5,000 mcg PO DAILY 03/07/17 [History ] QUEtiapine [SEROquel] 50 mg PO BEDTIME 03/07/17 [History] traMADol HCl [Tramadol HCl] 50 mg PO QID 03/07/17 [History] Montelukast [Singulair] 10 mg PO BEDTIME 07/01/18 [History] tiZANidine [Zanaflex] 4 mg PO BID 07/01/18 [History] predniSONE 20 mg PO WITHBREAKFAST #3 tab 08/18/18 [Rx] Cetirizine HCl [Zyrtec] 10 mg PO DAILY 10/12/18 [History] Losartan Potassium 25 mg PO DAILY 10/12/18 [History] Meloxicam 15 mg PO DAILY 10/12/18 [History] Ranitidine HCl 150 mg PO BID #8 tablet 10/12/18 [Rx] amLODIPine Besylate [Norvasc] 10 mg PO DAILY #30 tablet 10/12/18 [Rx] predniSONE [Prednisone] 50 mg PO DAILY #3 tablet 10/12/18 [Rx] Past Medical History - Past Health History Medical/Surgical History: Denies Medical/Surgical History 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 Psychiatric History: Reports: Bipolar, Psych Hospitalization(s), Suicide Attempt Endocrine/Metabolic History: Reports: Hyperthyroidism, Obesity/BMI 30+ - Infectious Disease History Infectious Disease History: Reports: Chicken Pox, Mumps - Past Surgical History GI Surgical History: Reports: Colonoscopy, Hernia, Abdominal, Hernia, Inguinal Neurological Surgical History: Reports: Spinal Fusion, Other (See Below) Other Neurological Surgeries/Procedures: neck fusion x 2 Musculoskeletal Surgical History: Reports: Shoulder Surgery Other Musculoskeletal Surgeries/Procedures:: R rotator cuff surgery 2 Social & Family History - Family History Family Medical History: Noncontributory - Caffeine Use Caffeine Use: Reports: Coffee, Soda - Living Situation & Occupation Occupation: Disabled ED ROS ENT - Review of Systems Review Of Systems: See Below Constitutional: Reports: No Symptoms HEENT: Reports: No Symptoms, Other (troat dyscomfort) Respiratory: Reports: No Symptoms Endocrine: Reports: No Symptoms GI/Abdominal: Reports: No Symptoms : Reports: No Symptoms Musculoskeletal: Reports: No Symptoms Skin: Reports: No Symptoms Neurological: Reports: No Symptoms Psychiatric: Reports: No Symptoms Hematologic/Lymphatic: Reports: No Symptoms Immunologic: Reports: No Symptoms ED EXAM, ENT - Physical Exam Exam: See Below Exam Limited By: No Limitations General Appearance: Alert, WD/WN, Mild Distress Eye Exam: Bilateral Eye: Normal Inspection Ears: Normal External Exam Nose: Normal Inspection Mouth/Throat: Normal Inspection, Normal Gums, Normal Lips, Normal Oropharynx, Normal Teeth, Other (uvula: no erythema, possible mildly enlarged) Head: Atraumatic, Normocephalic Neck: Normal Inspection, Supple, Non-Tender, Full Range of Motion Respiratory/Chest: No Respiratory Distress, Lungs Clear, Normal Breath Sounds Cardiovascular: Normal Peripheral Pulses, Regular Rate, Rhythm, No Edema, No Gallop, No JVD GI/Abdominal: Normal Bowel Sounds, Soft, Non-Tender, No Organomegaly, No Mass, Pelvis Stable (Male) Exam: Deferred Rectal (Males) Exam: Deferred Back: Normal Inspection Extremities: Normal Inspection, Normal Range of Motion, Non-Tender Neurological: Alert, Oriented, CN II-XII Intact, Normal Cognition, Normal Gait Psychiatric: Normal Affect, Normal Mood Skin: Warm, Dry, Intact, Normal Color, No Rash Lymphatic: No Adenopathy Course - Vital Signs Text/Narrative:: 58 y.o.w.m with a H/O uvulitis, came to the because he feels his uvula is enlarged. Pt is currently on meds including Prednisone, which he took LEAD FORMER. Pt is scheduled for surgery on November 25. No SOB, No difficulty swallowing. eats drinks. no no CP> No F/C no other acute med issues. BP 177/89 RR 18 Pulse ox 99 % on RA Temp 35.7 Pulse 88 PE: WNWD W M in no discomfort,, good air movement throughout Impression: H/O Uvulitis Tx: None Reexam: Pt was doing fine in the ED Plan: D/C with instructions Last Recorded V/S: Last Vital Signs Temp 35.7 C 11/10/18 04:20 Pulse 89 11/10/18 04:20 Resp 18 11/10/18 04:20 BP 177/81 H 11/10/18 04:20 Pulse Ox 99 11/10/18 04:20 Departure - Departure Time of Disposition: 04:35 Disposition: Home, Self-Care 01 Condition: Good Clinical Impression: Uvular swelling - Discharge Information Referrals: PCP,Unknown [Ordering Only Provider] - Forms: ED Department Discharge Additional Instructions: Please cont your meds, please f/u, come back if your symptoms get worse acutely
== END 2018-11-10 04:45 | disposition home or self-care (01) ==
LOC: FB.ED 04:16
DX: K13.79 Other lesions of oral mucosa (principal); E78.00 Pure hypercholesterolemia, unspecified; I10 Essential (primary) hypertension; J45.909 Unspecified asthma, uncomplicated; F31.9 Bipolar disorder, unspecified; E05.90 Thyrotoxicosis, unspecified without thyrotoxic crisis or storm; Z88.8 Allergy status to other drugs, medicaments and biological substances; Z88.5 Allergy status to narcotic agent; Z79.82 Long term (current) use of aspirin; Z79.899 Other long term (current) drug therapy
CPT/HCPCS: 99282

== ENCOUNTER 2019-03-28 17:30 | Emergency (ER) | payer MEDICARE ==
[2019-03-28] MEDS ORDERED: Aspirin 81 MG Tab.Chew PO ONE (17:48)
--- NOTE | 2019-03-28 18:34 | EDM.PDOC ---
ED HPI GENERAL MEDICAL PROBLEM - General Chief Complaint: Chest Pain Stated Complaint: CHEST PAIN Time Seen by Provider: 03/28/19 17:45 History Limitations: Reports: No Limitations - History of Present Illness INITIAL COMMENTS - FREE TEXT/NARRATIVE: Patient presented to the ED because of pleuritic chest pain which started yesterday,07/21. he denies any dyspnea,N/V,diaphoresis. He has similar chest pain in the past and it resolved on it's own. Chest Pain Score (Numeric/FACES): 4 - Related Data Allergies Allergy/AdvReac Type Severity Reaction Status Date / Time bupropion [From Wellbutrin] Allergy Rash Verified 11/10/18 05:06 lisinopril Allergy Swelling Verified 11/10/18 05:06 losartan Allergy Swelling Verified 11/10/18 05:06 oxycodone Allergy Rash Verified 11/10/18 05:06 trazodone Allergy Other Verified 11/10/18 05:06 Home Meds: Home Meds Aspirin 81 mg PO DAILY 03/07/17 [History] Cyanocobalamin (Vitamin B-12) [Vitamin B12] 5,000 mcg PO DAILY 03/07/17 [History ] QUEtiapine [SEROquel] 50 mg PO BEDTIME 03/07/17 [History] traMADol HCl [Tramadol HCl] 50 mg PO QID 03/07/17 [History] Montelukast [Singulair] 10 mg PO BEDTIME 07/01/18 [History] tiZANidine [Zanaflex] 4 mg PO BID 07/01/18 [History] predniSONE 20 mg PO WITHBREAKFAST #3 tab 08/18/18 [Rx] Cetirizine HCl [Zyrtec] 10 mg PO DAILY 10/12/18 [History] Losartan Potassium 25 mg PO DAILY 10/12/18 [History] Meloxicam 15 mg PO DAILY 10/12/18 [History] Ranitidine HCl 150 mg PO BID #8 tablet 10/12/18 [Rx] amLODIPine Besylate [Norvasc] 10 mg PO DAILY #30 tablet 10/12/18 [Rx] predniSONE [Prednisone] 50 mg PO DAILY #3 tablet 10/12/18 [Rx] Past Medical History - Past Health History Medical/Surgical History: Denies Medical/Surgical History HEENT History: Reports: Other (See Below) Other HEENT History: Edema of uvula. 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 Psychiatric History: Reports: Bipolar, Psych Hospitalization(s), Suicide Attempt Endocrine/Metabolic History: Reports: Hyperthyroidism, Obesity/BMI 30+ - Infectious Disease History Infectious Disease History: Reports: Chicken Pox, Mumps - Past Surgical History GI Surgical History: Reports: Colonoscopy, Hernia, Abdominal, Hernia, Inguinal Neurological Surgical History: Reports: Spinal Fusion, Other (See Below) Other Neurological Surgeries/Procedures: neck fusion x 2 Musculoskeletal Surgical History: Reports: Shoulder Surgery Other Musculoskeletal Surgeries/Procedures:: R rotator cuff surgery 2 Social & Family History - Family History Family Medical History: Noncontributory - Caffeine Use Caffeine Use: Reports: Coffee, Soda - Living Situation & Occupation Occupation: Disabled ED ROS GENERAL - Review of Systems Review Of Systems: See Below Constitutional: Reports: No Symptoms HEENT: Reports: No Symptoms Respiratory: Reports: No Symptoms Cardiovascular: Reports: Chest Pain Endocrine: Reports: No Symptoms GI/Abdominal: Reports: No Symptoms : Reports: No Symptoms Musculoskeletal: Reports: No Symptoms Skin: Reports: No Symptoms Neurological: Reports: No Symptoms Psychiatric: Reports: No Symptoms Hematologic/Lymphatic: Reports: No Symptoms Immunologic: Reports: No Symptoms ED EXAM, GENERAL - Physical Exam Exam: See Below Exam Limited By: No Limitations General Appearance: Alert, WD/WN, No Apparent Distress Eye Exam: Bilateral Eye: PERRL Nose: Normal Inspection, Normal Mucosa, No Blood Throat/Mouth: Normal Inspection, Normal Lips, Normal Teeth, Normal Oropharynx, Normal Voice Head: Atraumatic, Normocephalic Neck: Normal Inspection, Supple, Non-Tender Respiratory/Chest: No Respiratory Distress, Lungs Clear, Normal Breath Sounds Cardiovascular: Regular Rate, Rhythm, No Edema, No Gallop, No JVD, No Murmur, Other (chest wall temderness-left) GI/Abdominal: Normal Bowel Sounds, Soft, Non-Tender, No Organomegaly, No Distention Course - Vital Signs Text/Narrative:: labs reviewed and discussed with patient EKG-NSR Trop neg ASA 324 mg po x1 Last Recorded V/S: Last Vital Signs Temp 36.8 C 03/28/19 17:30 Pulse 61 03/28/19 17:30 Resp 18 03/28/19 17:30 BP 133/77 03/28/19 17:30 Pulse Ox 98 03/28/19 17:30 - Orders/Labs/Meds Orders: Active Orders 24 hr Category Date Time Status EKG Documentation Completion [RC] ASDIRECTED Care 03/28/19 17:35 Active EKG 12 Lead [EK] Routine Ther 03/28/19 17:35 Ordered Labs: Laboratory Tests 03/28/19 03/28/19 03/28/19 Range/Units 17:55 17:55 17:55 WBC 7.1 (4.5-12.0) X10-3/uL RBC 5.15 (4.30-5.75) x10(6)uL Hgb 14.8 (13.5-17.8) g/dL Hct 43.8 (30.0-51.3) % MCV 85.2 (80-96) fL MCH 28.8 (27.7-33.6) pg MCHC 33.8 (32.2-35.4) g/dL RDW 13.7 (11.5-15.5) % Plt Count 343 (125-369) X10(3)uL MPV 8.1 (7.4-10.4) fL Neut % (Auto) 60.8 (46-82) % Lymph % (Auto) 24.5 (13-37) % [place] % (Auto) 7.6 (4-12) % Eos % (Auto) 6 H (1.0-5.0) % Baso % (Auto) 2 (0-2) % Neut # (Auto) 4.4 (1.6-8.3) # Lymph # (Auto) 1.7 (0.6-5.0) # [place] # (Auto) 0.5 (0.0-1.3) # Eos # (Auto) 0.4 (0.0-0.8) # Baso # (Auto) 0.1 (0.0-0.2) # Sodium 144 (135-145) mmol/L Potassium 3.7 (3.5-5.3) mmol/L Chloride 102 (100-110) mmol/L Carbon Dioxide 34 H (21-32) mmol/L BUN 16 (7-18) mg/dL Creatinine 1.3 (0.70-1.30) mg/dL Est Cr Clr Drug Dosing TNP Estimated GFR (MDRD) 57 L (>60) BUN/Creatinine Ratio 12.3 (9-20) Glucose 114 (80-116) mg/dL Calcium 9.1 (8.6-10.2) mg/dL Troponin I < 0.017 L (<0.017-0.056) ng/mL Meds: Medications Discontinued Medications Generic Name Dose Route Start Last Admin Trade Name Freq PRN Reason Stop Dose Admin Aspirin 324 mg 03/28/19 17:48 03/28/19 18:01 Aspirin PO 03/28/19 17:49 324 mg ONETIME ONE Administration Departure - Departure Time of Disposition: 18:30 Disposition: Home, Self-Care 01 Condition: Good Clinical Impression: Atypical chest pain Instructions: Nonspecific Chest Pain, [id number] Referrals: Evelyn Villa HOSE MENDER [Primary Care Provider] - Forms: ED Department Discharge Additional Instructions: please read discharge instructions on atypical chest pain follow up if symptoms persist Sepsis Event Note - Focused Exam Date Exam was Performed: 03/29/19 Time Exam was Performed: 10:45 - My Orders Last 24 Hours: My Active Orders 03/28/19 17:35 EKG Documentation Completion [RC] ASDIRECTED EKG 12 Lead [EK] Routine - Assessment/Plan Last 24 Hours: My Active Orders 03/28/19 17:35 EKG Documentation Completion [RC] ASDIRECTED EKG 12 Lead [EK] Routine
== END 2019-03-28 18:55 | disposition home or self-care (01) ==
LOC: FB.ED 17:30
DX: R07.89 Other chest pain (principal); I10 Essential (primary) hypertension; E78.00 Pure hypercholesterolemia, unspecified; J45.909 Unspecified asthma, uncomplicated; M19.90 Unspecified osteoarthritis, unspecified site; F31.9 Bipolar disorder, unspecified; E05.90 Thyrotoxicosis, unspecified without thyrotoxic crisis or storm; E66.9 Obesity, unspecified; Z68.34 Body mass index [BMI] 34.0-34.9, adult; Z88.5 Allergy status to narcotic agent; Z88.8 Allergy status to other drugs, medicaments and biological substances; Z79.82 Long term (current) use of aspirin; Z79.899 Other long term (current) drug therapy
CPT/HCPCS: 36415; 80048; 84484; 85025; 93005; 93010; 99283; 99285; A9270

== ENCOUNTER 2021-02-13 11:50 | Emergency (ER) | payer MEDICARE ==
[2021-02-13] MEDS ORDERED: Aspirin 81 MG Tab.Chew PO STA (12:25)
--- NOTE | 2021-02-13 13:32 | EDM.PDOC ---
ED HPI GENERAL MEDICAL PROBLEM - General Chief Complaint: Cardiovascular Problem Stated Complaint: TIGHTNESS CHEST Time Seen by Provider: 02/13/21 11:55 Source of Information: Reports: Patient History Limitations: Reports: No Limitations - History of Present Illness INITIAL COMMENTS - FREE TEXT/NARRATIVE: Patient presented to the ED because of chest pain. He feels like there is a tight band rapped around his chest. The pain is 3/10, no associated N/V or dyspnea. there is no fever, chills, cough or cold symptoms. Chest Pain Score (Numeric/FACES): 6 - Related Data Allergies Allergy/AdvReac Type Severity Reaction Status Date / Time bupropion [From Wellbutrin] Allergy Rash Verified 11/10/18 05:06 lisinopril Allergy Swelling Verified 11/10/18 05:06 losartan Allergy Swelling Verified 11/10/18 05:06 oxycodone Allergy Rash Verified 11/10/18 05:06 trazodone Allergy Other Verified 11/10/18 05:06 Home Meds: Home Meds Aspirin 81 mg PO DAILY 03/07/17 [History] Cyanocobalamin (Vitamin B-12) [Vitamin B12] 5,000 mcg PO DAILY 03/07/17 [History] QUEtiapine [SEROquel] 50 mg PO BEDTIME 03/07/17 [History] traMADol HCl [Tramadol HCl] 50 mg PO QID 03/07/17 [History] Montelukast [Singulair] 10 mg PO BEDTIME 07/01/18 [History] tiZANidine [Zanaflex] 4 mg PO BID 07/01/18 [History] predniSONE 20 mg PO WITHBREAKFAST #3 tab 08/18/18 [Rx] Cetirizine HCl [Zyrtec] 10 mg PO DAILY 10/12/18 [History] Losartan Potassium 25 mg PO DAILY 10/12/18 [History] Meloxicam 15 mg PO DAILY 10/12/18 [History] Ranitidine HCl 150 mg PO BID #8 tablet 10/12/18 [Rx] amLODIPine Besylate [Norvasc] 10 mg PO DAILY #30 tablet 10/12/18 [Rx] predniSONE [Prednisone] 50 mg PO DAILY #3 tablet 10/12/18 [Rx] Past Medical History - Past Health History Medical/Surgical History: Denies Medical/Surgical History HEENT History: Reports: Other (See Below) Other HEENT History: Edema of uvula. 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 Psychiatric History: Reports: Bipolar, Psych Hospitalization(s), Suicide Attempt Endocrine/Metabolic History: Reports: Hyperthyroidism, Obesity/BMI 30+ - Infectious Disease History Infectious Disease History: Reports: Chicken Pox, Mumps - Past Surgical History GI Surgical History: Reports: Colonoscopy, Hernia, Abdominal, Hernia, Inguinal Neurological Surgical History: Reports: Spinal Fusion, Other (See Below) Other Neurological Surgeries/Procedures: neck fusion x 2 Musculoskeletal Surgical History: Reports: Shoulder Surgery Other Musculoskeletal Surgeries/Procedures:: R rotator cuff surgery 2 Social & Family History - Family History Family Medical History: No Pertinent Family History - Tobacco Use Tobacco Use Status *Q: Never Tobacco User - Caffeine Use Caffeine Use: Reports: Coffee - Recreational Drug Use Recreational Drug Use: No - Living Situation & Occupation Occupation: Disabled ED ROS GENERAL - Review of Systems Review Of Systems: See Below Constitutional: Reports: No Symptoms HEENT: Reports: No Symptoms Respiratory: Reports: No Symptoms Cardiovascular: Reports: Chest Pain Endocrine: Reports: No Symptoms GI/Abdominal: Reports: No Symptoms : Reports: No Symptoms Musculoskeletal: Reports: No Symptoms Skin: Reports: No Symptoms Neurological: Reports: No Symptoms Psychiatric: Reports: No Symptoms ED EXAM, GENERAL - Physical Exam Exam: See Below Exam Limited By: No Limitations General Appearance: Alert, No Apparent Distress Eye Exam: Bilateral Eye: PERRL Ears: Normal External Exam, Normal Canal, Normal TMs Nose: Normal Inspection, Normal Mucosa, No Blood Throat/Mouth: Normal Inspection, Normal Lips, Normal Teeth, Normal Gums, Normal Oropharynx, Normal Voice Head: Atraumatic, Normocephalic Neck: Normal Inspection, Supple, Non-Tender, Full Range of Motion Respiratory/Chest: No Respiratory Distress, Lungs Clear, Normal Breath Sounds, No Accessory Muscle Use, Chest Non-Tender Cardiovascular: Normal Peripheral Pulses, Regular Rate, Rhythm, No Edema, No Gallop, No JVD, No Murmur, No Rub GI/Abdominal: Normal Bowel Sounds, Soft, Non-Tender, No Organomegaly, No Distention, No Abnormal Bruit Back Exam: Normal Inspection, Full Range of Motion Extremities: Normal Inspection, Normal Range of Motion, Non-Tender, No Pedal Edema, Normal Capillary Refill Neurological: Alert, Oriented, CN II-XII Intact, Normal Cognition, Normal Reflexes, No Motor/Sensory Deficits Psychiatric: Normal Affect #1 Interpretation EKG Date: 02/13/21 Time: 11:57 Rhythm: NSR Rate (Beats/Min): 74 [place]: Normal P-Wave: Present QRS: Normal ST-T: Normal QT: Normal KS/PQ Interval: 161 Comparison: No Change EKG Interpretation Comments: NSR Course - Vital Signs Text/Narrative:: Lab/EKG/CXR result was reviewed and discussed with patient 2 (81 mg ) aspirin PO x1 Last Recorded V/S: Last Vital Signs Temp 36.9 C 02/13/21 11:50 Pulse 71 02/13/21 11:50 Resp 18 02/13/21 11:50 BP 145/89 H 02/13/21 11:50 Pulse Ox 94 L 02/13/21 11:50 - Orders/Labs/Meds Labs: Laboratory Tests 02/13/21 02/13/21 02/13/21 Range/Units 12:45 12:45 12:45 WBC 7.3 (3.2-10.1) x10-3/uL RBC 5.05 (3.90-5.90) x10(6)uL Hgb 14.4 (12.9-17.7) g/dL Hct 43.5 (38.3-50.1) % MCV 86.2 (80.8-98.7) fL MCH 28.5 (27.0-33.3) pg MCHC 33.0 (28.7-35.3) g/dL RDW 14.0 (12.4-15.0) % Plt Count 352 (117-477) x10(3)uL MPV 7.9 (6.7-11.0) fL Neut % (Auto) 72.3 H (40.3-71.8) % Lymph % (Auto) 18.6 (15.8-45.3) % [place] % (Auto) 6.2 (5.5-15.2) % Eos % (Auto) 1.8 (0.1-6.8) % Baso % (Auto) 1.1 (0.3-3.8) % Neut # (Auto) 5.3 (1.7-6.9) x10-3/uL Lymph # (Auto) 1.4 (0.5-4.5) x10-3/uL [place] # (Auto) 0.5 (0.0-1.2) x10-3/uL Eos # (Auto) 0.1 (0.0-0.6) x10-3/uL Baso # (Auto) 0.1 (0.0-0.3) x10-3/uL D-Dimer, Quantitative (0.0-0.59) mg/LFEU Sodium 141 (135-145) mmol/L Potassium 3.7 (3.5-5.3) mmol/L Chloride 102 (100-110) mmol/L Carbon Dioxide 31 (21-32) mmol/L BUN 16 (7-18) mg/dL Creatinine 1.3 (0.70-1.30) mg/dL Est Cr Clr Drug Dosing 67.44 mL/min Estimated GFR (MDRD) 56 L (>60) BUN/Creatinine Ratio 12.3 (9-20) Glucose 112 (80-116) mg/dL Calcium 9.3 (8.6-10.2) mg/dL Total Bilirubin 0.5 (0.1-1.3) mg/dL AST 23 (5-25) IU/L ALT 37 H D (12-36) U/L Alkaline Phosphatase 84 (56-112) IU/L Troponin I 7.3 (4.0-60.3) pg/mL Total Protein 7.2 (6.0-8.0) g/dL Albumin 4.1 (3.2-4.6) g/dL Globulin 3.1 g/dL Albumin/Globulin Ratio 1.3 02/13/21 Range/Units 12:45 WBC (3.2-10.1) x10-3/uL RBC (3.90-5.90) x10(6)uL Hgb (12.9-17.7) g/dL Hct (38.3-50.1) % MCV (80.8-98.7) fL MCH (27.0-33.3) pg MCHC (28.7-35.3) g/dL RDW (12.4-15.0) % Plt Count (117-477) x10(3)uL MPV (6.7-11.0) fL Neut % (Auto) (40.3-71.8) % Lymph % (Auto) (15.8-45.3) % [place] % (Auto) (5.5-15.2) % Eos % (Auto) (0.1-6.8) % Baso % (Auto) (0.3-3.8) % Neut # (Auto) (1.7-6.9) x10-3/uL Lymph # (Auto) (0.5-4.5) x10-3/uL [place] # (Auto) (0.0-1.2) x10-3/uL Eos # (Auto) (0.0-0.6) x10-3/uL Baso # (Auto) (0.0-0.3) x10-3/uL D-Dimer, Quantitative 0.33 (0.0-0.59) mg/LFEU Sodium (135-145) mmol/L Potassium (3.5-5.3) mmol/L Chloride (100-110) mmol/L Carbon Dioxide (21-32) mmol/L BUN (7-18) mg/dL Creatinine (0.70-1.30) mg/dL Est Cr Clr Drug Dosing mL/min Estimated GFR (MDRD) (>60) BUN/Creatinine Ratio (9-20) Glucose (80-116) mg/dL Calcium (8.6-10.2) mg/dL Total Bilirubin (0.1-1.3) mg/dL AST (5-25) IU/L ALT (12-36) U/L Alkaline Phosphatase (56-112) IU/L Troponin I (4.0-60.3) pg/mL Total Protein (6.0-8.0) g/dL Albumin (3.2-4.6) g/dL Globulin g/dL Albumin/Globulin Ratio Meds: Medications Discontinued Medications Generic Name Dose Route Start Last Admin Trade Name Freq PRN Reason Stop Dose Admin Aspirin 243 mg 02/13/21 12:25 02/13/21 12:31 Aspirin 81 Mg Tab.Chew PO 02/13/21 12:26 243 mg NOW STA Administration Departure - Departure Time of Disposition: 13:45 Disposition: Home, Self-Care 01 Condition: Good Clinical Impression: Atypical chest pain Instructions: Nonspecific Chest Pain, Adult, [id number] Referrals: Evelyn Villa HIGH LIFT OPERATOR [Primary Care Provider] - Forms: ED Department Discharge Additional Instructions: Please read discharge instructions on atypical chest pain Continue taking aspirin 81 mg daily Keep the appointment to your upcoming [place] visit Sepsis Event Note (ED) - Evaluation Sepsis Screening Result: No Definite Risk
--- NOTE | 2021-02-13 16:20 | CR ---
CHEST ONE VIEW INDICATION: Chest pain. FINDINGS: Two portable AP upright views of the chest were obtained 02/13/[address] angiography of 03/02/20. The heart appeared normal in size and shape. The aorta is tortuous. Overlying EKG leads are noted. An active infiltrate or effusion was not identified. IMPRESSION: 1. No acute process. 2. ASD aorta. MTDD
== END 2021-02-13 14:10 | disposition home or self-care (01) ==
LOC: FB.ED 11:50
DX: R07.89 Other chest pain (principal); I10 Essential (primary) hypertension; J45.909 Unspecified asthma, uncomplicated; M19.90 Unspecified osteoarthritis, unspecified site; E66.9 Obesity, unspecified; Z68.32 Body mass index [BMI] 32.0-32.9, adult; Z88.8 Allergy status to other drugs, medicaments and biological substances; Z88.5 Allergy status to narcotic agent; Z79.82 Long term (current) use of aspirin; Z79.899 Other long term (current) drug therapy
CPT/HCPCS: 36415; 71045; 80053; 84484; 85025; 85379; 93005; 99285; A9270